=== PATIENT | male | born 1990 | race African-American/Black ===

== ENCOUNTER 2017-05-10 14:48 | Emergency (ER) | payer OTHER ==
[~2017-05-10] VITALS: Ht 180.3 cm; Wt 67.6 kg
[2017-05-10 15:05] VITALS: BP 136/59
[2017-05-10] MEDS ORDERED: PRED20TA PO (15:36)
--- NOTE | 2017-05-10 15:37 | PHYS DOC ---
Past Medical History Past Medical History: No Pertinent History Past Surgical History: No Surgical History Alcohol Use: Occasionally Drug Use: Marijuana Adult General Chief Complaint Chief Complaint: ALLERGIC REACTION HPI HPI Patient is a 27 year old male presents to the emergency department with c/o rash to bilateral arms, neck and face. Patient states they just changed laundry detergents. Denies SOA or difficulty breathing. Patient has had this rash since Thursday and took Benadryl once with no relief. Review of Systems Review of Systems Constitutional: Denies fever or chills [] Eyes: Denies change in visual acuity, redness, or eye pain [] HENT: Denies nasal congestion or sore throat [] Respiratory: Denies cough or shortness of breath [] Cardiovascular: No additional information not addressed in HPI [] GI: Denies abdominal pain, nausea, vomiting, bloody stools or diarrhea [] : Denies dysuria or hematuria [] Musculoskeletal: Denies back pain or joint pain [] Integument: rash denies skin lesions [] Neurologic: Denies headache, focal weakness or sensory changes [] Endocrine: Denies polyuria or polydipsia [] Allergies Allergies Allergies Coded Allergies Type Severity Reaction Last Updated Verified No Known Drug Allergies 04/17/15 No Physical Exam Physical Exam Constitutional: Well developed, well nourished, no acute distress, non-toxic appearance. [] HENT: Normocephalic, atraumatic, bilateral external ears normal, oropharynx moist, no oral exudates, nose normal. [] Eyes: PERRLA, EOMI, conjunctiva normal, no discharge. [] Neck: Normal range of motion, no tenderness, supple, no stridor. [] Cardiovascular:Heart rate regular rhythm, no murmur [] Lungs & Thorax: Bilateral breath sounds clear to auscultation [] Abdomen: Bowel sounds normal, soft, no tenderness, no masses, no pulsatile masses. [] Skin: Warm, dry, no erythema. Generalized red raised rash noted on bilateral arms and face, no drainage or discharge noted. Extremities: No tenderness, no cyanosis, no clubbing, ROM intact, no edema. [] Neurologic: Alert and oriented X 3, normal motor function, normal sensory function, no focal deficits noted. [] Psychologic: Affect normal, judgement normal, mood normal. [] Current Patient Data Vital Signs Vital Signs Date Time Temp Pulse Resp B/P (MAP) Pulse Ox O2 Delivery O2 Flow Rate FiO2 05/10/17 15:05 98.5 90 16 136/59 (84) 99 Room Air 98.5 EKG EKG [] Radiology/Procedures Radiology/Procedures [] Course & Med Decision Making Course & Med Decision Making Pertinent Labs and Imaging studies reviewed. (See chart for details) Patient will be discharged home in stable condition. Recommended Benadryl 25 mg every 6 hours, He was instructed this medication will cause drowsiness do not take if you need to be alert and oriented. Patient will be prescribed prednisone and recommended to take pepcid 20 mg daily for the next 7 days. Recommended keeping the areas clean dry and cool. Aveeno baths may also help soothe the skin. Patient was provided with signs and symptoms to return to the emergency department. Recommended followup with primary care provider in 5-7 days. Patient agrees with discharge instructions, treatment regimen and followup recommendations. All questions and concerns have been answered at the bedside. [] Dragon Disclaimer Dragon Disclaimer This electronic medical record was generated, in whole or in part, using a voice recognition dictation system. Departure Departure Impression: Primary Impression: Contact dermatitis Disposition: HOME, SELF-CARE Condition: STABLE Referrals: UNKNOWN PCP NAME (PCP) Patient Instructions: Contact Dermatitis, [id number] Additional Instructions: Activity as tolerated Benadryl 25 mg every 6 hours as needed for itching and irritation. This medication will cause drowsiness do not take if you need to be alert and oriented. Pepcid 20 mg daily for the next 7 days Medication as prescribed Keep the area clean dry and cool Aveeno baths may also help soothe the skin Followup with primary care provider in 5-7 days Return to emergency department as needed for signs and symptoms that become worse. Scripts Prednisone (PREDNISONE) 20 Mg Tablet 40 MG PO DAILY for 7 Days, #14 TAB Prov: OCLE SHEPHERD APRN 05/10/17 Problem Qualifiers Primary Impression: Contact dermatitis Contact dermatitis type: allergic Contact dermatitis trigger: unspecified trigger Qualified Codes: L23.9 - Allergic contact dermatitis, unspecified cause COLE SHEPHERD APRN May 10, 2017 15:37
[2017-05-10] MEDS ORDERED: FAMOTIDINE 20 MG TABLET. PO ONE (16:00)
[2017-05-10] MEDS ORDERED: diphenhydrAMINE HCL 25 MG CAPSULE PO ONE (16:00)
[2017-05-10] MEDS ORDERED: predniSONE 20 MG TABLET PO ONE (16:00)
== END 2017-05-10 15:45 | disposition home or self-care (01) ==
LOC: ER 14:48
DX: L23.89 Allergic contact dermatitis due to other agents (principal)
CPT/HCPCS: 99284; J7512; Q0163

== ENCOUNTER 2018-03-19 23:24 | Emergency (ER) | payer OTHER ==
[~2018-03-19] VITALS: Ht 180.3 cm; Wt 77.1 kg
[~2018-03-19 23:24] MED LIST: PRED20TA PO
[2018-03-20 00:14] VITALS: BP 137/72
[2018-03-20] MEDS ORDERED: POLY10DR EACHEYE (00:24)
[2018-03-20] MEDS ORDERED: TETRACAINE 0.5% OPHTH SOLUTION 4ML BOTTLE. ONE (00:27)
[2018-03-20] MEDS ORDERED: FLUORESCEIN OPHTH TEST STRIP. ONE (00:27)
[2018-03-20] MEDS ORDERED: FLUORESCEIN OPHTH TEST STRIP. OU ONE (00:30)
[2018-03-20] MEDS ORDERED: TETRACAINE 0.5% OPHTH SOLUTION 4ML BOTTLE. OU ONE (00:30)
--- NOTE | 2018-03-20 00:40 | PHYS DOC ---
Past Medical History Past Medical History: No Pertinent History Past Surgical History: No Surgical History Alcohol Use: Occasionally Drug Use: Marijuana Adult General Chief Complaint Chief Complaint: EYE PROBLEMS HPI HPI Patient is a 28 year old male with right eye pain and irritation get some dust in a couple days ago he has been rubbing his eye it is getting better. His vision he says is normal. Current Medications Current Medications Current Medications Medications (Trade) Dose Ordered Sig/Marely Start Time Stop Time Status Last Admin Dose Admin Fluorescein Sodium (Ful-Vanita) 1 strip STK-MED ONCE 03/20/18 00:27 03/20/18 00:28 DC Tetracaine HCl (Tetracaine) 40 drop STK-MED ONCE 03/20/18 00:27 03/20/18 00:28 DC Allergies Allergies Allergies Coded Allergies Type Severity Reaction Last Updated Verified No Known Drug Allergies 04/17/15 No Physical Exam Physical Exam Constitutional: Well developed, well nourished, no acute distress, non-toxic appearance. [] HENT: Normocephalic, atraumatic, bilateral external ears normal, oropharynx moist, no oral exudates, nose normal. [] Eyes: PERRLA, EOMI, conjunctiva injected on the right. Cornea is normal there is no fluorescein uptake I flip the eyelids and there is no foreign body. Anterior chamber appears quiet. Patient says he has no blurry vision. Extremities: No tenderness, no cyanosis, no clubbing, ROM intact, no edema. [] Neurologic: Alert and oriented X 3, normal motor function, normal sensory function, no focal deficits noted. [] Psychologic: Affect normal, judgement normal, mood normal. [] Current Patient Data Vital Signs Vital Signs Date Time Temp Pulse Resp B/P (MAP) Pulse Ox O2 Delivery O2 Flow Rate FiO2 03/20/18 00:14 97.7 60 18 137/72 (93) 98 Room Air 97.7 EKG EKG [] Radiology/Procedures Radiology/Procedures [] Course & Med Decision Making Course & Med Decision Making Pertinent Labs and Imaging studies reviewed. (See chart for details) []Conjunctivitis no visible foreign body identified. Perhaps there is some irritation from recent dust exposure. I don't see any foreign body perception for antibiotic drops was given. Dragon Disclaimer Dragon Disclaimer This electronic medical record was generated, in whole or in part, using a voice recognition dictation system. Departure Departure Impression: Primary Impression: Conjunctivitis Disposition: 01 HOME, SELF-CARE Condition: IMPROVED Referrals: CHIRAG GOODWIN (PCP) Patient Instructions: Conjunctivitis (Viral and Bacterial) Scripts Polymyxin B Sulf/Trimethoprim (POLYTRIM EYE DROPS) 10 Ml Drops 1 DROP EACHEYE Q6HRS, #10 ML Prov: FLIP BONNER MD 03/20/18 FLIP BONNER MD Mar 20, 2018 00:40
== END 2018-03-20 00:50 | disposition home or self-care (01) ==
LOC: ER 23:24
DX: H10.31 Unspecified acute conjunctivitis, right eye (principal)
CPT/HCPCS: 99283